=== PATIENT | female | born 1955 | race Caucasian/White ===

== ENCOUNTER 2017-06-12 14:59 | Outpatient (CLI) | payer BC | END 2017-06-12 15:00 | disposition home or self-care (01) | LOC: BICMAMMO 14:59 | PROVIDERS: ATTEND Family Medicine | DX: Z12.31 Encounter for screening mammogram for malignant neoplasm of breast (principal); N64.89 Other specified disorders of breast; Z80.3 Family history of malignant neoplasm of breast | CPT/HCPCS: 77063; 77067 ==

== ENCOUNTER 2017-11-13 16:14 | Outpatient (CLI) | payer BC | END 2017-11-13 16:15 | disposition home or self-care (01) | LOC: BICRAD 16:14 | PROVIDERS: ATTEND Family Medicine | DX: R05 Cough (principal) | CPT/HCPCS: 71046 ==

== ENCOUNTER 2020-09-19 12:12 | Outpatient (CLI) | payer BC | END 2020-09-19 12:13 | disposition home or self-care (01) | LOC: BICMAMMO 12:12 | PROVIDERS: ATTEND Family Medicine | DX: Z12.31 Encounter for screening mammogram for malignant neoplasm of breast (principal); Z80.3 Family history of malignant neoplasm of breast | CPT/HCPCS: 77063; 77067 ==

== ENCOUNTER 2021-03-29 04:19 | Emergency (ER) | payer BC ==
[2021-03-29] MEDS ORDERED: Ketorolac Tromethamine 30 MG/ML VIAL ONE (06:29)
[2021-03-29] MEDS ORDERED: Ondansetron PF 4 MG/2 ML Vial ONE (06:29)
[2021-03-29 07:19] LABS: ALT (SGPT) 23 U/L (8-55); AST (SGOT) 27 U/L (5-34); Albumin 4.2 g/dL (3.4-4.8); Alkaline Phosphatase 45 U/L (40-110); Anion Gap 13 mmol/L (10-20); BUN (Urea Nitrogen) 9 mg/dL (9.8-20.1); Bilirubin, Total 0.8 mg/dL (0.2-1.2); Calc. Creatinine Clearance 0 mL/min (70-130); Carbon Dioxide 24 mmol/L (23-31); Chloride 101 mmol/L (98-107); Globulin 2.5 g/dL (2.4-3.5); Glucose 118 mg/dL (80-115); Lipase 12 U/L (8-78); Potassium 4.4 mmol/L (3.5-5.1); Protein, Total 6.7 g/dL (5.8-8.1); Sodium 134 mmol/L (136-145)
[2021-03-29 07:44] LABS: #Monocytes 0.7 thou/uL (0.11-0.59); %Eosinophils 0.3 % (0.0-10.0); %Lymphocytes 21.4 % (21.0-51.0); %Monocytes 13.7 % (0.0-10.0); %Neutrophils 64.5 % (42.0-75.0); Hemoglobin 13.8 g/dL (12.0-16.0); Mean Corpuscular HGB CONC 34.6 g/dL (32.0-36.0); Mean Corpuscular Hemoglobin 32.7 pg (27.0-31.0); Mean Corpuscular Volume 94.6 fL (78.0-98.0); Mean Platelet Volume 8.3 fL (7.4-10.4); Platelet Count 195 thou/uL (130-400); RBC Distribution Width 11.8 % (11.5-14.5); Red Blood Cell (RBC) Count 4.22 mill/uL (4.20-5.40); White Blood Cell (WBC) Count 4.7 thou/uL (4.8-10.8)
[2021-03-29 08:30] LABS: Bilirubin Negative (Negative); Blood, Urine Negative (Negative); Clarity Clear (Clear); Glucose, Urine (Dipstick) Normal (Negative); Ketone, Urine Negative (Negative); Leukocyte Negative Leu/uL (Negative); Nitrite Negative (Negative); Protein, Urine (Dipstick) Negative (Neg-Trace); Urobilinogen Normal mg/dL (Less than 2); pH, Urine 6.5 (5.0-9.0)
[2021-03-29 17:07] LABS: SARS-CoV-2 PCR by NAA DETECTED (NotDetected)
== END 2021-03-29 08:59 | disposition home or self-care (01) ==
LOC: ERS 04:19
DX: U07.1 COVID-19 (principal); R51.9 Headache, unspecified; E78.5 Hyperlipidemia, unspecified
CPT/HCPCS: 36415; 80053; 81003; 83690; 85025; 96374; 96375; J1885; J2405; U0003; U0005

== ENCOUNTER 2021-04-05 22:43 | Emergency (ER) | payer BC ==
[2021-04-05] MEDS ORDERED: Promethazine HCl 25 MG/ML VIAL ONE (23:12)
[2021-04-05] MEDS ORDERED: Ketorolac Tromethamine 30 MG/ML VIAL ONE (23:12)
[2021-04-05 23:28] LABS: #Monocytes 0.7 thou/uL (0.11-0.59); #Neutrophils 4.8 thou/uL (1.40-6.50); %Basophils 0.1 % (0.0-1.0); %Eosinophils 0.5 % (0.0-10.0); %Lymphocytes 26.2 % (21.0-51.0); %Monocytes 9.6 % (0.0-10.0); %Neutrophils 63.6 % (42.0-75.0); Hemoglobin 14.9 g/dL (12.0-16.0); Mean Corpuscular HGB CONC 33.7 g/dL (32.0-36.0); Mean Corpuscular Hemoglobin 31.5 pg (27.0-31.0); Mean Corpuscular Volume 93.7 fL (78.0-98.0); Mean Platelet Volume 8.2 fL (7.4-10.4); Platelet Count 194 thou/uL (130-400); Red Blood Cell (RBC) Count 4.72 mill/uL (4.20-5.40); White Blood Cell (WBC) Count 7.6 thou/uL (4.8-10.8)
[2021-04-05 23:45] LABS: ALT (SGPT) 91 U/L (8-55); AST (SGOT) 111 U/L (5-34); Albumin 4.1 g/dL (3.4-4.8); Alkaline Phosphatase 101 U/L (40-110); Anion Gap 16 mmol/L (10-20); BUN (Urea Nitrogen) 15 mg/dL (9.8-20.1); Calc. Creatinine Clearance 0 mL/min (70-130); Calcium 8.8 mg/dL (7.8-10.44); Carbon Dioxide 24 mmol/L (23-31); Chloride 105 mmol/L (98-107); Globulin 2.9 g/dL (2.4-3.5); Glucose 106 mg/dL (80-115); Potassium 4.2 mmol/L (3.5-5.1); Sodium 141 mmol/L (136-145)
[2021-04-06] MEDS ORDERED: Metoclopramide HCl 10 MG/2 ML VIAL ONE (00:55)
[2021-04-06] MEDS ORDERED: Promethazine HCl 25 MG/ML VIAL ONE (00:55)
[2021-04-06] MEDS ORDERED: diphenhydrAMINE 50 MG/ML VIAL ONE (00:58)
[2021-04-06] MEDS ORDERED: Dexamethasone 10 MG/ML VIAL ONE (01:26)
[2021-04-06] MEDS ORDERED: Iopamidol 370 76% 100 ML VIAL ONE (10:18)
== END 2021-04-06 01:39 | disposition home or self-care (01) ==
LOC: ERS 22:43
DX: U07.1 COVID-19 (principal); R07.9 Chest pain, unspecified
CPT/HCPCS: 36415; 71045; 71275; 80053; 84484; 85025; 93005; 96365; 96375; J1100; J1200; J1885; J2550; J2765; Q9967

== ENCOUNTER 2022-01-17 19:46 | Observation (INO) | payer BC ==
[~2022-01-17 19:46] MED LIST: Iopamidol-370 76% 500 ML 1 ML ONE
[2022-01-17 20:30] LABS: #Basophils 0.1 thou/uL (0.0-0.2); #Eosinphils 0.2 thou/uL (0.0-0.7); #Lymphocytes 2.8 thou/uL (1.20-3.40); #Monocytes 0.6 thou/uL (0.11-0.59); #Neutrophils 3.3 thou/uL (1.40-6.50); %Eosinophils 2.9 % (0.0-10.0); %Lymphocytes 40.1 % (21.0-51.0); %Monocytes 8.7 % (0.0-10.0); %Neutrophils 47.3 % (42.0-75.0); Hemoglobin 12.8 g/dL (12.0-16.0); Mean Corpuscular HGB CONC 33.2 g/dL (32.0-36.0); Mean Corpuscular Hemoglobin 31.9 pg (27.0-31.0); Mean Corpuscular Volume 96.1 fL (78.0-98.0); Mean Platelet Volume 8.4 fL (7.4-10.4); Platelet Count 270 thou/uL (130-400); RBC Distribution Width 11.8 % (11.5-14.5); Red Blood Cell (RBC) Count 4.03 mill/uL (4.20-5.40)
[2022-01-17] MEDS ORDERED: diphenhydrAMINE 50 MG/ML VIAL ONE (20:33)
[2022-01-17] MEDS ORDERED: Metoclopramide HCl 10 MG/2 ML VIAL ONE (20:33)
[2022-01-17 20:52] LABS: ALT (SGPT) 19 U/L (8-55); AST (SGOT) 19 U/L (5-34); Albumin 4.5 g/dL (3.4-4.8); Alkaline Phosphatase 51 U/L (40-110); Anion Gap 15 mmol/L (10-20); BUN (Urea Nitrogen) 16 mg/dL (9.8-20.1); Bilirubin, Total 1.2 mg/dL (0.2-1.2); Calc. Creatinine Clearance 0 mL/min (70-130); Calcium 9.5 mg/dL (7.8-10.44); Carbon Dioxide 23 mmol/L (23-31); Chloride 109 mmol/L (98-107); Estimated GFR 58; Globulin 2.4 g/dL (2.4-3.5); Glucose 111 mg/dL (80-115); Potassium 4.1 mmol/L (3.5-5.1); Protein, Total 6.9 g/dL (5.8-8.1); Sodium 143 mmol/L (136-145)
[2022-01-17] MEDS ORDERED: Lorazepam 1 MG TAB ONE (21:47)
[2022-01-18] MEDS ORDERED: Acetaminophen 325 MG TAB PO PRN (00:07)
[2022-01-18] MEDS ORDERED: Ondansetron PF 4 MG/2 ML Vial IVP PRN (00:07)
[2022-01-18] MEDS ORDERED: traMADol HCl 50 MG TAB PO PRN (01:44)
[2022-01-18 06:44] LABS: #Eosinphils 0.2 thou/uL (0.0-0.7); #Lymphocytes 2.7 thou/uL (1.20-3.40); #Monocytes 0.5 thou/uL (0.11-0.59); %Basophils 0.3 % (0.0-1.0); %Eosinophils 2.6 % (0.0-10.0); %Lymphocytes 35.7 % (21.0-51.0); %Monocytes 7.1 % (0.0-10.0); %Neutrophils 54.3 % (42.0-75.0); Hemoglobin 12.5 g/dL (12.0-16.0); Mean Corpuscular HGB CONC 33.4 g/dL (32.0-36.0); Mean Corpuscular Volume 95.8 fL (78.0-98.0); Mean Platelet Volume 9.3 fL (7.4-10.4); Platelet Count 223 thou/uL (130-400); RBC Distribution Width 11.9 % (11.5-14.5); Red Blood Cell (RBC) Count 3.89 mill/uL (4.20-5.40); White Blood Cell (WBC) Count 7.4 thou/uL (4.8-10.8)
[2022-01-18 07:07] LABS: Anion Gap 14 mmol/L (10-20); BUN (Urea Nitrogen) 12 mg/dL (9.8-20.1); Calc. Creatinine Clearance 0 mL/min (70-130); Calcium 8.9 mg/dL (7.8-10.44); Carbon Dioxide 23 mmol/L (23-31); Cardiac Risk 3.1 (Less than 4.5); Chloride 111 mmol/L (98-107); Cholesterol 144 mg/dl (< 200 Desired); Estimated GFR 75; Glucose 91 mg/dL (80-115); HDL Cholesterol 46 mg/dL (>60 Neg Risk); LDL Cholesterol, Calculated 74 mg/dL; Potassium 4.2 mmol/L (3.5-5.1); Sodium 144 mmol/L (136-145); Triglycerides 120 mg/dL (Less than 150)
[2022-01-18] MEDS ORDERED: Enoxaparin Sodium 40 MG/0.4 ML SYRINGE SC SCH (09:00)
[2022-01-18] MEDS ORDERED: SUMAtriptan Succinate 50 MG TAB PO PRN (09:00)
[2022-01-18] MEDS ORDERED: Atorvastatin Calcium 10 MG TAB PO SCH ×2 (09:00→21:00)
[2022-01-18] MEDS ORDERED: FLU VACC QS2022-23(65YR UP)/PF 240 MCG/0.7 ML SYRINGE IM ONE (09:00)
[2022-01-20 11:44] VITALS: BMI 34.0
[2022-01-20 11:45] VITALS: BP 152/94; TEMP 98
== END 2022-01-18 18:30 | disposition home or self-care (01) ==
LOC: ERS 19:46 → NEURO 23:15
PROVIDERS: ADMIT Internal Medicine; ATTEND Internal Medicine
DX: R51.9 Headache, unspecified (principal); H54.61 Unqualified visual loss, right eye, normal vision left eye; E78.5 Hyperlipidemia, unspecified; K21.9 Gastro-esophageal reflux disease without esophagitis; G89.29 Other chronic pain; M54.9 Dorsalgia, unspecified; M50.30 Other cervical disc degeneration, unspecified cervical region; Z79.899 Other long term (current) drug therapy; Z20.822 Contact with and (suspected) exposure to COVID-19
CPT/HCPCS: 36415; 70496; 70498; 70551; 80048; 80053; 80061; 84484; 85025; 85652; 86140; 93005; 96374; 96375; G0378; J1200; J1650; J2765; Q9967; U0003; U0005

== ENCOUNTER 2022-08-07 08:14 | Outpatient (CLI) | payer BC | END 2022-08-07 08:15 | disposition home or self-care (01) | LOC: BICMAMMO 08:14 | PROVIDERS: ATTEND Family Medicine | DX: Z12.31 Encounter for screening mammogram for malignant neoplasm of breast (principal) | CPT/HCPCS: 77063; 77067 ==

== ENCOUNTER 2023-02-13 10:22 | Outpatient (CLI) | payer BC | END 2023-02-13 10:23 | disposition home or self-care (01) | LOC: SCSRAD 10:22 | PROVIDERS: ATTEND Family Medicine | DX: R10.2 Pelvic and perineal pain (principal) | CPT/HCPCS: 72170 ==

== ENCOUNTER 2023-02-28 18:51 | Emergency (ER) | payer BC, MEDICARE ==
[2023-02-28] MEDS ORDERED: Ibuprofen 200 MG TAB ONE (20:17)
[2023-02-28] MEDS ORDERED: Cyclobenzaprine 10 MG TAB ONE (20:48)
== END 2023-02-28 22:15 | disposition home or self-care (01) ==
LOC: ERS 18:51
DX: M54.50 Low back pain, unspecified (principal); M54.2 Cervicalgia
CPT/HCPCS: 70450; 72125; 72131

== ENCOUNTER 2023-08-28 14:47 | Outpatient (CLI) | payer BC | END 2023-08-28 14:48 | disposition home or self-care (01) | LOC: BICMAMMO 14:47 | PROVIDERS: ATTEND Family Medicine | DX: Z12.31 Encounter for screening mammogram for malignant neoplasm of breast (principal); Z80.3 Family history of malignant neoplasm of breast | CPT/HCPCS: 77063; 77067 ==